=== PATIENT | male | born 1990 | race Caucasian/White ===

== ENCOUNTER 2018-04-13 17:08 | Emergency (ER) | payer OTHER | END 2018-04-13 20:08 | disposition other institution (70) | LOC: ED 17:08 | DX: Z53.21 Procedure and treatment not carried out due to patient leaving prior to being seen by health care provider (principal) ==

== ENCOUNTER 2018-04-13 17:08 | Emergency (ER) | payer SELFPAY ==
[~2018-04-13] VITALS: Ht 182.9 cm; Wt 68.0 kg
[2018-04-13 17:17] VITALS: Ht 182.9 cm; Wt 68.0 kg
[2018-04-13 20:08] VITALS: BP 130/86
== END 2018-04-13 20:08 | disposition other institution (70) ==
LOC: ED 17:08
DX: F10.129 Alcohol abuse with intoxication, unspecified (principal)
CPT/HCPCS: J3411; J3475; J3490; J7030